=== PATIENT | male | born 1945 | race Caucasian/White ===

== ENCOUNTER 2023-02-04 22:55 | Inpatient (IN) | payer OTHER ==
[~2023-02-04] VITALS: Ht 175.3 cm; Wt 68.0 kg
[2023-02-05] VITALS (16 sets, daily range): BP systolic 113–148; BP diastolic 37–58
--- NOTE | 2023-02-05 00:57 | NUR ---
ADMIT NOTE. 77 YR OLD MALE DIRECT ADMIT FROM [place] WITH C/O ABD PAIN AND FEVER. ALERT AND ORIENTED. ORIENTED TO USE OF CALL LIGHT. CALL LIGHT IN REACH. MD NOTIFIED AND WILL COME TO BEDSIDE TO EVAL AND ADMIT
[2023-02-05 02:13] LABS: Hematocrit 24.2 % (37.0-53.0); Hemoglobin 7.5 g/dL (13.5-17.5); Mean Corpuscular HGB 32.6 pg (26.0-34.0); Mean Corpuscular Volume 105 fL (80-100); Mean Platelet Volume 12.4 fL (9.1-12.4); Platelet Count 202 K/mm3 (150-400); RDW Coefficient Variation 20.8 % (11.7-14.2); RDW Standard Deviation 74.1 fL (35.1-46.3); White Blood Cell Count 8.62 K/mm3 (4.00-11.30)
[2023-02-05] MEDS ORDERED: Ventolin/Prove6.7 GM INH (02:30)
[2023-02-05 02:31] LABS: International Normalized Ratio 1.42; Prothrombin Time Results 14.6 Sec (9.7-11.5)
[2023-02-05] MEDS ORDERED: Ventolin5 MG/1 ML INH (02:31)
[2023-02-05] MEDS ORDERED: ALLO100 PO (02:32)
[2023-02-05] MEDS ORDERED: AMLO5 PO (02:32)
[2023-02-05 02:33] LABS: Albumin, Blood 2.5 g/dL (3.4-5.0); Albumin/Globulin Ratio 0.8 (0.8-1.8); Bilirubin, Total 0.3 mg/dL (0.1-1.0); Bun/Creatinine Ratio 14.4 (12.0-20.0); Calcium, Blood 8.3 mg/dL (8.5-10.1); Creatinine, Blood 3.96 mg/dL (0.60-1.20); Globulin, Blood 3.2 g/dL (2.2-4.0); Potassium, Blood 4.9 mmol/L (3.5-5.5); Total Protein, Blood 5.7 g/dL (6.4-8.2)
[2023-02-05] MEDS ORDERED: Aspir 8181 MG PO (02:33)
[2023-02-05] MEDS ORDERED: CREON DR 12,001 EACH PO ×2 (02:33→02:34)
[2023-02-05] MEDS ORDERED: MIRALAX11914 PO (02:35)
[2023-02-05] MEDS ORDERED: Cyclobenzaprine5 MG PO (02:37)
[2023-02-05] MEDS ORDERED: COLACE100 MG PO (02:37)
[2023-02-05] MEDS ORDERED: ELIQUIS5 M2 PO (02:39)
[2023-02-05] MEDS ORDERED: Flonase 0.05% N16 GM (02:40)
[2023-02-05] MEDS ORDERED: FOLI1 PO (02:41)
[2023-02-05] MEDS ORDERED: GABA300 PO (02:42)
[2023-02-05] MEDS ORDERED: LACT PO (02:42)
[2023-02-05] MEDS ORDERED: LACT10SY PO (02:43)
[2023-02-05 02:45] LABS: BAND PERCENT MAN 42 % (0-8); BASOPHILS PERCENT MAN 0 % (0-2); EOSINOPHILS PERCENT MAN 0 % (0-6); LYMPHOCYTES ABSOLUTE MAN 0.43 K/mm3 (0.84-5.20); LYMPHOCYTES PERCENT MAN 5 % (21-46); METAMYELOCYTE ABSOLUTE MAN 0.08 K/mm3 (0.00-0.00); METAMYELOCYTE PERCENT MAN 1 % (0-0); MONOCYTES ABSOLUTE MAN 1.29 K/mm3 (0.16-1.47); MONOCYTES PERCENT MAN 15 % (4-13); SEG NEUTROPHILS PERCENT MAN 37 % (41-73); TOTAL CELLS COUNTED 100
[2023-02-05] MEDS ORDERED: [UNRECOGNIZED DRUG - OTHER] TOP (02:45)
[2023-02-05] MEDS ORDERED: LIDO700A20 TOP (02:45)
[2023-02-05] MEDS ORDERED: LOSA50 PO (02:45)
[2023-02-05] MEDS ORDERED: MELA3 PO (02:46)
[2023-02-05] MEDS ORDERED: MIDO5 PO ×2 (02:48→02:49)
[2023-02-05] MEDS ORDERED: MULVITA PO (02:49)
[2023-02-05] MEDS ORDERED: NALOXONE HCL4 MG (02:50)
[2023-02-05] MEDS ORDERED: NEPRO CARB STEADY PO (02:51)
[2023-02-05] MEDS ORDERED: ONDA4ODT PO (02:56)
[2023-02-05] MEDS ORDERED: Percocet 5-3251 EACH PO (02:57)
[2023-02-05] MEDS ORDERED: PANT40 PO (02:58)
[2023-02-05] MEDS ORDERED: RENVELA800 MG PO (03:07)
[2023-02-05] MEDS ORDERED: ROSUVASTATIN CA10 MG PO (03:08)
[2023-02-05] MEDS ORDERED: SENNA LAXATIVE8.6 MG PO (03:09)
[2023-02-05] MEDS ORDERED: STIOLTO RESPIMAT4 G1 INH (03:09)
[2023-02-05] MEDS ORDERED: Vitamin D1000 UNI1 PO (03:10)
[2023-02-05] MEDS ORDERED: MIRTAZAPINE7.5 M1 PO (03:11)
[2023-02-05] MEDS ORDERED: APHEN325 M2 PO (03:12)
--- NOTE | 2023-02-05 04:15 | NUR ---
PLASTIC FRAME INSERTER SUMMARY VSS. WAS ADMITTED EARLIER IN THE SHIFT FROM [place], AFTER DURING DIALYSIS HE BECAME ILL AND "STOPPED HALF WAY THROUGH IT". WAS TRANSFERRED HERE WITH DX OF SEPSIS AND COLITIS. REPORTEDLY HAD SEVERE ABD DISCOMFORT, BUT UPON ARRIVAL STATED PAIN HAD GONE. ALERT AND ORIENTED. MD ASSESSED PT AND IVF INITIATED, ANTIBIOTICS TO BEGIN IN THE AM. HAS BEEN RESTING QUIETLY WITH FEW INTERRUPTIONS. CALL LIGHT IN REACH. BED ALARM ON FOR SAFETY. WILL CONTINUE TO MONITOR.
--- NOTE | 2023-02-05 04:43 | NUR ---
WAS GIVEN TEACHING RE NO SMOKING, FIRE IGNITION WITH OXYGEN WHEN HE ARRIVED ON THE FLOOR. STATED NOT CURRENT SMOKER. VOICED UNDERSTANDING OF INFO.
[2023-02-06] VITALS (24 sets, daily range): BP systolic 110–149; BP diastolic 38–59
--- NOTE | 2023-02-06 03:57 | NUR ---
HYDROMETER CALIBRATOR SUMMARY VSS. RECEIVED TEACHING RE FIRE IGNITION/OXYGEN AND NO SMOKING AGAIN THIS SHIFT. MED TELE SINUS RHYTHM IN THE 80'S. ON CL LIQ DIET. TOLERATING WELL. IV ANTIBIOTICS INFUSING PER MD ORDERS. SEE MAR FOR DETAILS ON MEDS. HAS BEEN RESTING QUIETLY WITH FEW INTERRUPTIONS, QUICKLY GOES BACK TO SLEEP WHEN AWAKENED FOR CARE. DIALYSIS FISTULA OF LEFT FOREARM. FEELING IN BLE IMPROVED COMPARED TO THAT OF 24 HR AGO. CALL LIGHT IN REACH. WILL CONTINUE TO MONITOR.
[2023-02-06 09:28] LABS: Hematocrit 20.2 % (37.0-53.0); Hemoglobin 6.6 g/dL (13.5-17.5); Mean Corpuscular HGB 33.3 pg (26.0-34.0); Mean Corpuscular HGB Conc 32.7 g/dL (31.5-36.5); Mean Corpuscular Volume 102 fL (80-100); Mean Platelet Volume 12.5 fL (9.1-12.4); Platelet Count 191 K/mm3 (150-400); RDW Standard Deviation 76.2 fL (35.1-46.3); Red Blood Cell Count 1.98 M/mm3 (4.30-5.90); White Blood Cell Count 9.35 K/mm3 (4.00-11.30)
[2023-02-06 09:44] LABS: Albumin, Blood 2.2 g/dL (3.4-5.0); Albumin/Globulin Ratio 0.6 (0.8-1.8); Bilirubin, Total 0.2 mg/dL (0.1-1.0); Bun/Creatinine Ratio 14.6 (12.0-20.0); Creatinine, Blood 4.12 mg/dL (0.60-1.20); Globulin, Blood 3.5 g/dL (2.2-4.0); Magnesium, Blood 2.1 mg/dL (1.6-2.4); Phosphorus, Blood 3.1 mg/dL (2.5-4.9); Potassium, Blood 4.3 mmol/L (3.5-5.5); Total Protein, Blood 5.7 g/dL (6.4-8.2)
[2023-02-06 12:45] LABS: BAND PERCENT MAN 34 % (0-8); BASOPHILS PERCENT MAN 0 % (0-2); EOSINOPHILS ABSOLUTE MAN 0.09 K/mm3 (0.00-0.68); EOSINOPHILS PERCENT MAN 1 % (0-6); LYMPHOCYTES ABSOLUTE MAN 0.65 K/mm3 (0.84-5.20); LYMPHOCYTES PERCENT MAN 7 % (21-46); MONOCYTES ABSOLUTE MAN 0.09 K/mm3 (0.16-1.47); MONOCYTES PERCENT MAN 1 % (4-13); SEG NEUTROPHILS PERCENT MAN 57 % (41-73); TOTAL CELLS COUNTED 100
--- NOTE | 2023-02-06 18:45 | NUR ---
SHIFT SUMMARY: PT A/O X 4, STANDBY ASSIST TO BSC. PT TOLERATING CLEAR LIQUID DIET. PT ABD PAIN MANAGED WITH FENTANYL AND TYLENOL. PT TOLERATED BLOOD ADMINISTRATION THIS AM DURING DIALYSIS. PT HAD BM TODAY. PT NSR ON TELE. PLEASANT AND COOPERATIVE WITH CARE. PT WAS EDUCATED ON IGNITION SOURCES AND RISK OF SMOKING WHILE USING OXYGEN. PT VU. PT DENIED HAVING IGNITION SOURCES AND IS NOT ON OXYGEN. PT DID NOT SHOW ANY SIGNS OF UTILIZING SMOKING MATERIALS WHILE ROUNDED ON.
[2023-02-07] VITALS (14 sets, daily range): BP systolic 121–164; BP diastolic 48–104
[2023-02-07 06:04] LABS: Hematocrit 24.5 % (37.0-53.0); Hemoglobin 8.1 g/dL (13.5-17.5)
[2023-02-07 06:28] LABS: Albumin, Blood 2.3 g/dL (3.4-5.0); Anion Gap 9 mmol/L (6-16); Blood Urea Nitrogen 37 mg/dL (8-24); Bun/Creatinine Ratio 12.1 (12.0-20.0); CO2, Blood 31 mmol/L (21-32); Calcium, Blood 9.1 mg/dL (8.5-10.1); Chloride, Blood 97 mmol/L (98-108); Creatinine, Blood 3.05 mg/dL (0.60-1.20); Glomerular Filtration Rate 20 (60-); Glucose, Blood 96 mg/dL (70-99); Magnesium, Blood 2.1 mg/dL (1.6-2.4); Phosphorus, Blood 2.4 mg/dL (2.5-4.9); Potassium, Blood 3.4 mmol/L (3.5-5.5); Sodium, Blood 137 mmol/L (136-145)
--- NOTE | 2023-02-07 07:45 | NUR ---
TYLENOL AND FENTANYL FOR PAIN MODERATELY EFFECTIVE. TOLERATES CARES, AO, PLEASANT, VSS, DID NOT GET OOB LAST NIGHT. TOLERATING DIET WITHOUT N/V. UNEVENTFUL NIGHT.
[2023-02-07 12:38] LABS: Hemoglobin 8.1 g/dL (13.5-17.5); Mean Corpuscular HGB 33.8 pg (26.0-34.0); Mean Corpuscular HGB Conc 33.8 g/dL (31.5-36.5); Mean Corpuscular Volume 100 fL (80-100); Mean Platelet Volume 12.1 fL (9.1-12.4); Platelet Count 194 K/mm3 (150-400); RDW Coefficient Variation 20.4 % (11.7-14.2); RDW Standard Deviation 71.4 fL (35.1-46.3); White Blood Cell Count 10.55 K/mm3 (4.00-11.30)
[2023-02-07 13:06] LABS: BAND PERCENT MAN 8 % (0-8); BASOPHILS PERCENT MAN 0 % (0-2); EOSINOPHILS PERCENT MAN 1 % (0-6); LYMPHOCYTES ABSOLUTE MAN 0.31 K/mm3 (0.84-5.20); LYMPHOCYTES PERCENT MAN 3 % (21-46); MONOCYTES ABSOLUTE MAN 0.21 K/mm3 (0.16-1.47); MONOCYTES PERCENT MAN 2 % (4-13); NEUTROPHILS ABSOLUTE MAN 9.91 K/mm3 (1.96-9.15); SEG NEUTROPHILS PERCENT MAN 86 % (41-73); TOTAL CELLS COUNTED 100
--- NOTE | 2023-02-07 18:43 | NUR ---
SHIFT SUMMARY- PT RECIEVED IV CONTRAST WITH HIS CT ABDOMEN AND WAS DIALIZED AFTER THAT. LACTIC WAS CRITICAL AT 3.1 REDRAW WAS DONE 40 MINUTES INTO DIALYSIS SO RESULTS MAY BE INACCURATE, MD AWARE. WAS CALLED BY TELE AN EVENT WAS NOTED AT 0630 AM ON 02-06-23 PT HAD A 28 BEAT RUN OF V-TACH FOLLOWED BY A 3 SECOND PAUSE AND THEN RETURNED TO HIS BASELINE RATE. ATTEMPTED TO CALL MD AFTER BEING INFORMED AND WAS UNABLE TO REACH HER. PT HAS HAD NO EVENTS THIS SHIFT THOUGH. DENIES SOB OR CP. PT CURRENTLY IN BED, CALL LIGHT IN REACH NO S&S OF DISTRESS NOTED. 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
[2023-02-08 02:20] VITALS: BP 142/47
--- NOTE | 2023-02-08 04:40 | NUR ---
COSTING ANALYST SUMMARY NO ACUTE EVENTS THIS SHIFT. A&OX4. PATIENT EFFECTIVELY COMMUNICATES NEEDS. VSS. RR EVEN AND UNLABORED ON RA. PAIN ASSESSED AND MEDICATED PER EMAR. PATIENT IS TOLERATING IV ABO THERAPY. FISTULA TO LEFT FOREARM /C BRUITS AND THRILL. DIALYSIS YESTERDAY, 02/07, AFTER CT /C CONTRAST. CT RESULTS PENDING. BED LOW AND LOCKED. CALL LIGHT WITHIN REACH. THIS RN WILL CONTINUE TO MONITOR.
[2023-02-08 05:03] LABS: BASOPHILS ABSOLUTE AUTO 0.04 K/mm3 (0.00-0.23); BASOPHILS PERCENT AUTO 0 % (0-2); EOSINOPHILS ABSOLUTE AUTO 0.53 K/mm3 (0.00-0.68); EOSINOPHILS PERCENT AUTO 4 % (0-6); Hematocrit 26.6 % (37.0-53.0); Hemoglobin 9.1 g/dL (13.5-17.5); IMMATURE GRAN ABSOLUTE AUTO 0.07 K/mm3 (0.00-0.10); IMMATURE GRAN PERCENT AUTO 1 % (0-1); LYMPHOCYTES ABSOLUTE AUTO 0.56 K/mm3 (0.84-5.20); LYMPHOCYTES PERCENT AUTO 4 % (21-46); MONOCYTES ABSOLUTE AUTO 1.29 K/mm3 (0.16-1.47); MONOCYTES PERCENT AUTO 10 % (4-13); Mean Corpuscular HGB 33.3 pg (26.0-34.0); Mean Corpuscular HGB Conc 34.2 g/dL (31.5-36.5); Mean Corpuscular Volume 97 fL (80-100); NEUTROPHILS ABSOLUTE AUTO 10.78 K/mm3 (1.96-9.15); NEUTROPHILS PERCENT AUTO 81 % (41-73); Platelet Count 224 K/mm3 (150-400); RDW Coefficient Variation 19.3 % (11.7-14.2); RDW Standard Deviation 66.5 fL (35.1-46.3); Red Blood Cell Count 2.73 M/mm3 (4.30-5.90); White Blood Cell Count 13.27 K/mm3 (4.00-11.30)
[2023-02-08 05:35] LABS: Albumin, Blood 2.8 g/dL (3.4-5.0); Anion Gap 12 mmol/L (6-16); Blood Urea Nitrogen 30 mg/dL (8-24); Bun/Creatinine Ratio 10.4 (12.0-20.0); CO2, Blood 27 mmol/L (21-32); Calcium, Blood 9.3 mg/dL (8.5-10.1); Chloride, Blood 93 mmol/L (98-108); Creatinine, Blood 2.88 mg/dL (0.60-1.20); Glomerular Filtration Rate 22 (60-); Glucose, Blood 136 mg/dL (70-99); Magnesium, Blood 1.9 mg/dL (1.6-2.4); Phosphorus, Blood 2.3 mg/dL (2.5-4.9); Potassium, Blood 3.5 mmol/L (3.5-5.5); Sodium, Blood 132 mmol/L (136-145)
[2023-02-08 08:01] VITALS: BP 138/56
[2023-02-08 12:23] VITALS: BP 154/78
[2023-02-08 14:33] VITALS: BP 163/65
[2023-02-08 18:09] VITALS: BP 139/55
--- NOTE | 2023-02-08 18:46 | NUR ---
SHIFT SUMMARY- PT HAD A SMALL HARD STOOL THIS MORNING AND A MEDIUM QUANTITY OF HARD STOOL AFTER A GLYCERIN SUPPOSITORY. MD ORDERED AND ADDITIONAL SUPPOSITORY AND SCHEDULED BOWEL MEDS. PT PAIN HAS BEEN WELL MANAGED WITH THE NORCO TODAY. NO DIALYSIS TODAY. LAST SUPPOSITORY WAS GIVEN AROUND 1819. PASSED ON IN REPORT TO NIGHT RN AT THE BEDSIDE. DR GUILLERMO SPOKE TO DR BEDOLLA AND IF THE PT IS STILL HERE MONDAY SHE MAY OFFICIALLY CONSULT FOR THE POSSIBLE ISCHEMIA NOTED ON CT. PT IN BED, CALL [facility] IN REACH NO S&S OF DISTRESS.
[2023-02-08 20:38] VITALS: BP 151/54
[2023-02-09] VITALS (16 sets, daily range): BP systolic 112–159; BP diastolic 42–61
--- NOTE | 2023-02-09 04:04 | NUR ---
C PROGRAMMER SUMMARY NO ACUTE EVENTS THIS SHIFT. A&OX4. PATIENT EFFECTIVELY COMMUNICATES NEEDS. VSS. RR EVEN AND UNLABORED ON RA. PAIN ASSESSED AND MEDICATED PER EMAR. PATIENT IS TOLERATING IV ABO THERAPY. SEVERAL SMALL BOWEL MOVEMENTS ON DAY SHIFT REPORTED, BUT NO BOWEL MOVEMENTS OCURRED THIS SHIFT. PATIENT IS PASSING FLATULENCE. FISTULA TO LEFT FOREARM. BED LOW AND LOCKED. CALL LIGHT WITHIN REACH. THIS RN WILL CONTINUE TO MONITOR.
[2023-02-09 04:44] LABS: Hematocrit 20.1 % (37.0-53.0); Hemoglobin 6.9 g/dL (13.5-17.5)
[2023-02-09 05:53] LABS: Magnesium, Blood 1.7 mg/dL (1.6-2.4)
[2023-02-09 05:56] LABS: Albumin, Blood 2.4 g/dL (3.4-5.0); Anion Gap 12 mmol/L (6-16); Blood Urea Nitrogen 43 mg/dL (8-24); Bun/Creatinine Ratio 10.1 (12.0-20.0); CO2, Blood 25 mmol/L (21-32); Chloride, Blood 92 mmol/L (98-108); Creatinine, Blood 4.25 mg/dL (0.60-1.20); Glomerular Filtration Rate 14 (60-); Glucose, Blood 110 mg/dL (70-99); Phosphorus, Blood 5.2 mg/dL (2.5-4.9); Potassium, Blood 3.4 mmol/L (3.5-5.5); Sodium, Blood 129 mmol/L (136-145)
--- NOTE | 2023-02-09 18:09 | NUR ---
SHIFT SUMMARY PT IS ALERT AND ORIENTED X4. SBA TO THE BEDSIDE COMMODE DIALYSIS TODAY. 1 UNIT OF BLOOD ADMINISTERED DURING DIALYSIS. PT REPORTS FEELING LESS DISTENDED TODAY BUT STILL HAS PAIN IN UPPER ABDOMEN. TREATED PER EMAR. 2 SMALL HARD STOOLS TODAY. NO ACUTE CHANGES THIS SHIFT. PT DENIES SMOKING CIGARETTE BUT OCASSIONALY SMOKE MARIJUANA. EDUCATION PROVIDED ON RISKS OF INJURY WHILE USING AN IGNITION SOURCE AROUND OXYGEN. PT VERBALIZES UNDERSTANDING. PT DENIES HAVING ANY IGNITION SOURCES ON HER OR IN HER ITEMS. NO VISITORS THIS SHIFT.
--- NOTE | 2023-02-09 18:29 | NUR ---
SPOKE WITH PHARMACIST. OK TO PUSH OUT ANTIBIOTIC SCHEDULE TODAY AND CONTINUE WITH REGULAR SCHEDULE TOMORROW. ANTIBIOTICS PUSHED OUT DUE TO DIALYSIS.
[2023-02-10 03:24] VITALS: BP 146/55
[2023-02-10 05:47] LABS: BASOPHILS ABSOLUTE AUTO 0.05 K/mm3 (0.00-0.23); BASOPHILS PERCENT AUTO 1 % (0-2); EOSINOPHILS ABSOLUTE AUTO 0.32 K/mm3 (0.00-0.68); EOSINOPHILS PERCENT AUTO 4 % (0-6); Hematocrit 25.9 % (37.0-53.0); IMMATURE GRAN ABSOLUTE AUTO 0.11 K/mm3 (0.00-0.10); IMMATURE GRAN PERCENT AUTO 1 % (0-1); LYMPHOCYTES ABSOLUTE AUTO 0.56 K/mm3 (0.84-5.20); LYMPHOCYTES PERCENT AUTO 6 % (21-46); MONOCYTES ABSOLUTE AUTO 1.51 K/mm3 (0.16-1.47); MONOCYTES PERCENT AUTO 17 % (4-13); Mean Corpuscular HGB 32.3 pg (26.0-34.0); Mean Corpuscular HGB Conc 34.7 g/dL (31.5-36.5); Mean Corpuscular Volume 93 fL (80-100); Mean Platelet Volume 12.2 fL (9.1-12.4); NEUTROPHILS ABSOLUTE AUTO 6.62 K/mm3 (1.96-9.15); NEUTROPHILS PERCENT AUTO 72 % (41-73); Platelet Count 181 K/mm3 (150-400); RDW Coefficient Variation 18.4 % (11.7-14.2); RDW Standard Deviation 58.4 fL (35.1-46.3); Red Blood Cell Count 2.79 M/mm3 (4.30-5.90); White Blood Cell Count 9.17 K/mm3 (4.00-11.30)
--- NOTE | 2023-02-10 06:16 | NUR ---
SHIFT SUMMARY PT C/O PAIN THROUGHOUT SHIFT. PT WOULD FALL ASLEEP AFTER INITIAL MEDICATIN AND WAKE BACK UP SHORTLY AFTER REQUESTING ADDITIONAL PAIN MEDICATION. PER PT REPORT, FENTANYL MANAGED PT'S PAIN THE BEST. 2 EPISODES OF EMESIS THIS SHIFT. FIRST EPISODE WAS 100CC OF BROWN BILE IN WHICH HE REFUSED PRN ZOFRAN. THE SECOND EPISODE WAS 400CC IN WHICH HE WAS AGREEABLE TO ZOFRAN. NO OTHER EMESIS NOTED AFTER ZOFRAN ADMIN. DR. JACKMAN WAS NOTIFIED OF A 5 BEAT RUN OF ASYMPTOMATIC V-TACH OCCURRING AROUND 0130. NO NEW ORDERS AT THIS TIME. PT TO HAVE AM LABS. Q1H FIRE SAFETY CHECKS COMPLETED WITH NO SOURCES OF IGNITION FOUND.
[2023-02-10 06:39] LABS: Albumin, Blood 2.4 g/dL (3.4-5.0); Albumin/Globulin Ratio 0.6 (0.8-1.8); Bilirubin, Total 0.3 mg/dL (0.1-1.0); Bun/Creatinine Ratio 8.3 (12.0-20.0); Calcium, Blood 8.2 mg/dL (8.5-10.1); Creatinine, Blood 3.62 mg/dL (0.60-1.20); Globulin, Blood 3.7 g/dL (2.2-4.0); Magnesium, Blood 1.7 mg/dL (1.6-2.4); Phosphorus, Blood 5.3 mg/dL (2.5-4.9); Potassium, Blood 3.6 mmol/L (3.5-5.5); Total Protein, Blood 6.1 g/dL (6.4-8.2)
[2023-02-10 07:15] VITALS: BP 143/59
[2023-02-10 14:56] VITALS: BP 134/55
[2023-02-10 18:04] VITALS: BP 143/55
--- NOTE | 2023-02-10 18:58 | NUR ---
SHIFT SUMMARY PT IS ALERT AND ORIENTED X4. PT HAD MED-LARGE SOFT STOOL FOLLOWING ENEMA. PT HAS NOT EATEN MUCH TODAY. SBA WITH FWW TO BEDSIDE COMMODE. NO DIALYSIS TODAY. NO ACUTE CHANGES THIS SHIFT
[2023-02-10 20:08] VITALS: BP 151/53
[2023-02-11] VITALS (16 sets, daily range): BP systolic 113–165; BP diastolic 50–95
[2023-02-11 04:49] LABS: BASOPHILS ABSOLUTE AUTO 0.06 K/mm3 (0.00-0.23); BASOPHILS PERCENT AUTO 1 % (0-2); EOSINOPHILS ABSOLUTE AUTO 0.39 K/mm3 (0.00-0.68); EOSINOPHILS PERCENT AUTO 3 % (0-6); Hematocrit 23.5 % (37.0-53.0); IMMATURE GRAN ABSOLUTE AUTO 0.14 K/mm3 (0.00-0.10); IMMATURE GRAN PERCENT AUTO 1 % (0-1); LYMPHOCYTES ABSOLUTE AUTO 0.55 K/mm3 (0.84-5.20); LYMPHOCYTES PERCENT AUTO 5 % (21-46); MONOCYTES ABSOLUTE AUTO 1.46 K/mm3 (0.16-1.47); MONOCYTES PERCENT AUTO 12 % (4-13); Mean Corpuscular HGB 32.4 pg (26.0-34.0); Mean Corpuscular Volume 95 fL (80-100); Mean Platelet Volume 11.4 fL (9.1-12.4); NEUTROPHILS ABSOLUTE AUTO 9.59 K/mm3 (1.96-9.15); NEUTROPHILS PERCENT AUTO 79 % (41-73); Platelet Count 211 K/mm3 (150-400); RDW Coefficient Variation 18.1 % (11.7-14.2); RDW Standard Deviation 59.7 fL (35.1-46.3); Red Blood Cell Count 2.47 M/mm3 (4.30-5.90); White Blood Cell Count 12.19 K/mm3 (4.00-11.30)
--- NOTE | 2023-02-11 05:16 | NUR ---
SHIFT SUMMARY PT HAS RESTED MOST THE NIGHT. PT CONTINUES TO REPORT BACK PAIN, AND AT ONE POINT DURING THE SHIFT MUSCLES SPASMS. BOTH WERE RELIEVED WITH MEDS PER EMAR. PT CONTINUES BOWEL CARE FOR CONSTIPATION. NO BOWEL MOVEMENT THIS SHIFT. IV ANTIBIOTICS CONTINUED. PT A/OX4, MAKES NEEDS KNOWN. VITALS STABLE. BED IN LOWEST POSITION, CALL LIGHT WITH REACH.
[2023-02-11 05:18] LABS: Albumin, Blood 2.2 g/dL (3.4-5.0); Anion Gap 12 mmol/L (6-16); Blood Urea Nitrogen 41 mg/dL (8-24); Bun/Creatinine Ratio 8.5 (12.0-20.0); CO2, Blood 26 mmol/L (21-32); Calcium, Blood 7.6 mg/dL (8.5-10.1); Chloride, Blood 95 mmol/L (98-108); Creatinine, Blood 4.84 mg/dL (0.60-1.20); Glomerular Filtration Rate 12 (60-); Glucose, Blood 87 mg/dL (70-99); Phosphorus, Blood 7.2 mg/dL (2.5-4.9); Potassium, Blood 3.9 mmol/L (3.5-5.5); Sodium, Blood 133 mmol/L (136-145)
[2023-02-11 15:52] LABS: Stool Occult Blood Guaiac 1 Pos (Neg)
--- NOTE | 2023-02-11 15:59 | NUR ---
PHYSICIAN CONTACT CALL TO DR GUILLERMO AT 0400 TO REPORT STOOL POSITIVE FOR BLOOD AND REPORT NEW IV WAS PLACED. NEW ORDER FOR NPO. WILL CONSULT WITH GI AND CALL BACK.
[2023-02-11 17:36] LABS: Hemoglobin 8.4 g/dL (13.5-17.5)
--- NOTE | 2023-02-11 18:02 | NUR ---
PHYSICIAN CONTACT DR KRUGER AT BEDSIDE WITH PATIENT. STATES PT MAY NOT TOLERATE BOWEL PREP. NEW ORDER FOR CLEAR LIQUID DIET. WILL ASSESS PT TOMORROW BEFORE ADVANCING DIET.
--- NOTE | 2023-02-11 18:05 | NUR ---
DAY SHIFT SUMMARY PT A/OX4. BEDSIDE DIALYSIS THIS MORNING. 2L REMOVED. BLOOD PRESSURES STABLE T/O AND AFTER DIALYSIS. PT HAD TWO LARGE BLACK TARRY/PUDDING STOOLS. SENT SAMPLE. POSITVE FOR BLOOD. SEE OTHER NOTES. PT WILL REMAIN ON CLEAR LIQUID DIET UNTIL REASSESSED BY GI/DR KRUGER. PT CONTINUES TO COMPLAIN OF ABD PAIN AND BACK PAIN. MED PER EMAR. NEW IV PLACED IN RIGHT UPPER ARM. FISTULA IN LEFT ARE PATENT AND DRESSED AFTER DIALYSIS. PT ABLE TO MAKE NEEDS KNOWN. 1 PA TO BSC. CHARGE NURSE ASSESSED IGNITION RISKS. PT EDUCATED ON IGNITION RISKS.
[2023-02-12 01:32] VITALS: BP 125/82
--- NOTE | 2023-02-12 05:00 | NUR ---
SHIFT SUMMARY NO ACUTE CHANGES NOTED DURING SHIFT. PT ALERT AND ORIENETED,CALLS APPROPRIATELY. PT REMAINS ON RA, SX 1 ASSIST. PT WITH CONTINUED C/O PAIN TO ABD, MEDICATED MULTIPLE TIMES PER EMAR, REPOSITIONED, HEAT APPLIED. WILL CONTINUE TO MONITOR. CALL LIGHT WITHIN REACH.
[2023-02-12 05:02] LABS: BASOPHILS ABSOLUTE AUTO 0.05 K/mm3 (0.00-0.23); BASOPHILS PERCENT AUTO 0 % (0-2); EOSINOPHILS ABSOLUTE AUTO 0.37 K/mm3 (0.00-0.68); EOSINOPHILS PERCENT AUTO 3 % (0-6); Hematocrit 24.8 % (37.0-53.0); Hemoglobin 8.3 g/dL (13.5-17.5); IMMATURE GRAN ABSOLUTE AUTO 0.15 K/mm3 (0.00-0.10); IMMATURE GRAN PERCENT AUTO 1 % (0-1); LYMPHOCYTES PERCENT AUTO 5 % (21-46); MONOCYTES ABSOLUTE AUTO 1.13 K/mm3 (0.16-1.47); MONOCYTES PERCENT AUTO 9 % (4-13); Mean Corpuscular HGB 32.4 pg (26.0-34.0); Mean Corpuscular HGB Conc 33.5 g/dL (31.5-36.5); Mean Corpuscular Volume 97 fL (80-100); Mean Platelet Volume 11.4 fL (9.1-12.4); NEUTROPHILS ABSOLUTE AUTO 10.85 K/mm3 (1.96-9.15); NEUTROPHILS PERCENT AUTO 82 % (41-73); Platelet Count 232 K/mm3 (150-400); RDW Coefficient Variation 17.9 % (11.7-14.2); RDW Standard Deviation 61.7 fL (35.1-46.3); Red Blood Cell Count 2.56 M/mm3 (4.30-5.90); White Blood Cell Count 13.25 K/mm3 (4.00-11.30)
[2023-02-12 05:21] LABS: Albumin, Blood 2.3 g/dL (3.4-5.0); Anion Gap 11 mmol/L (6-16); Blood Urea Nitrogen 27 mg/dL (8-24); Bun/Creatinine Ratio 6.8 (12.0-20.0); CO2, Blood 27 mmol/L (21-32); Calcium, Blood 8.1 mg/dL (8.5-10.1); Chloride, Blood 96 mmol/L (98-108); Creatinine, Blood 3.96 mg/dL (0.60-1.20); Glomerular Filtration Rate 15 (60-); Glucose, Blood 87 mg/dL (70-99); Magnesium, Blood 1.8 mg/dL (1.6-2.4); Phosphorus, Blood 5.3 mg/dL (2.5-4.9); Sodium, Blood 134 mmol/L (136-145)
[2023-02-12 07:38] VITALS: BP 138/123
[2023-02-12 07:39] VITALS: BP 136/46
[2023-02-12 16:16] VITALS: BP 143/53
--- NOTE | 2023-02-12 18:47 | NUR ---
SHIFT SUMMARY ALERT AND ORIENTED. TREATED PAIN PER EMAR. NO ACUTE CHANGES THIS SHIFT. PT DENIES SMOKING ANY PRODUCT. DURING HOURLY ROUNDING, EDUCATION IS PROVIDED ON THE RISKS OF INJURY WHILE USING AN IGNITION SOURCE AROUND OXYGEN. PT VERBALIZES UNDERSTANDING. PT. DENIES HAVING ANY IGNITION SOURCES ON HIM
[2023-02-12 20:18] VITALS: BP 175/67
[2023-02-13] VITALS (17 sets, daily range): BP systolic 111–171; BP diastolic 21–67
--- NOTE | 2023-02-13 04:24 | NUR ---
CARE NURSE RN SUMMARY NO ACUTE EVENTS OVERNIGHT. A&OX4. PATIENT EFFECTIVELY COMMUNICATES NEEDS. VSS. RR EVEN AND UNLABORED ON RA. TELE REVEALS SINUS RHYTHM, HR 80'S. PAIN ASSESSED AND MEDICATED PER EMAR. PATIENT IS PASSING FLATULENCE, BUT NO BOWEL MOVEMENTS THIS SHIFT. PER DAY SHIFT REPORT, PATIENT PASSED SEVERAL MEDIUM-SIZED BOWEL MOVEMENTS DURING THE DAY. FISTULA TO LEFT FOREARM WITH BRUITS AND THRILL. PATIENT IS TOLERATING IVO THERAPY. BED LOW AND LOCKED. CALL LIGHT WITHIN REACH. THIS RN WILL CONTINUE TO MONITOR.
[2023-02-13 04:51] LABS: Hematocrit 22.8 % (37.0-53.0); Hemoglobin 7.8 g/dL (13.5-17.5)
[2023-02-13 05:19] LABS: Albumin, Blood 2.4 g/dL (3.4-5.0); Anion Gap 13 mmol/L (6-16); Blood Urea Nitrogen 38 mg/dL (8-24); Bun/Creatinine Ratio 7.1 (12.0-20.0); CO2, Blood 27 mmol/L (21-32); Calcium, Blood 8.3 mg/dL (8.5-10.1); Chloride, Blood 92 mmol/L (98-108); Creatinine, Blood 5.38 mg/dL (0.60-1.20); Glomerular Filtration Rate 10 (60-); Glucose, Blood 106 mg/dL (70-99); Magnesium, Blood 1.9 mg/dL (1.6-2.4); Phosphorus, Blood 6.2 mg/dL (2.5-4.9); Sodium, Blood 132 mmol/L (136-145)
--- NOTE | 2023-02-13 17:00 | NUR ---
PATIENT EDUCATED ABOUT OXYGEN USE IN HOSPITAL, FLAMMABILITY OF OXYGEN, AND SAFETY REGARDING OXYGEN USE. VERBALIZED UNDERSTANDING OF THIS EDUCATION. DENIED HAVING ANY INCENDIARY DEVICES SUCH BOOTS AND SHOES SUPERVISOR OR MATCHES.
--- NOTE | 2023-02-13 17:15 | NUR ---
SHIFT SUMMARY: NO ACUTE EVENTS. HAD DIALYSIS TODAY, TOLERATED WELL. C/O PAIN IN LOW BACK; MEDICATED PER EMAR WITH SOME RELIEF. HAD BM TODAY, LOOSE PER PT REPORT. NO EVENTS ON TELEMETRY, SR 80-90'S. LFA AV FISTULA WITH POSITIVE THRILL AND BRUIT. DIET ADVANCED TO FULL LIQUID PER DR. KRUGER. STATED ABD FEELS BETTER TODAY. ON ROOM AIR. APPETITE OK.
[2023-02-14] VITALS (10 sets, daily range): BP systolic 99–156; BP diastolic 30–104
--- NOTE | 2023-02-14 03:43 | NUR ---
CLINICAL NURSE SPECIALIST SUMMARY NO ACUTE EVENTS OVERNIGHT. A&OX4. PATIENT EFFECTIVELY COMMUNICATES NEEDS. LABILE AFFECT NOTED. VSS. RR EVEN AND UNLABORED ON RA. TELE REVEALS SINUS RHYTHM, 90'S. PATIENT DID HAVE A 6-BEAT RUN OF V-TACH. NO REPORTS OF CHEST PAIN OR PALPITATIONS. PATIENT ALSO HAD AN EPISODE OF EMESIS WITH CONTINUED NAUSEA, FOR WHICH ZOFRAN WAS MINIMALLY EFFECTIVE. AN ORDER FOR IV REGLAN WAS OBTAINED AND REPORTED EFFECTIVE. PATIENT PASSED A MEDIUM-SIZED BOWEL MOVEMENT. BED LOW AND LOCKED. CALL LIGHT WITHIN REACH. THIS RN WILL CONTINUE TO MONITOR.
[2023-02-14 04:38] LABS: BASOPHILS ABSOLUTE AUTO 0.06 K/mm3 (0.00-0.23); BASOPHILS PERCENT AUTO 0 % (0-2); EOSINOPHILS ABSOLUTE AUTO 0.05 K/mm3 (0.00-0.68); EOSINOPHILS PERCENT AUTO 0 % (0-6); Hematocrit 23.9 % (37.0-53.0); IMMATURE GRAN ABSOLUTE AUTO 0.19 K/mm3 (0.00-0.10); IMMATURE GRAN PERCENT AUTO 1 % (0-1); LYMPHOCYTES ABSOLUTE AUTO 0.55 K/mm3 (0.84-5.20); LYMPHOCYTES PERCENT AUTO 3 % (21-46); MONOCYTES PERCENT AUTO 5 % (4-13); Mean Corpuscular HGB 32.4 pg (26.0-34.0); Mean Corpuscular HGB Conc 33.5 g/dL (31.5-36.5); Mean Corpuscular Volume 97 fL (80-100); Mean Platelet Volume 11.4 fL (9.1-12.4); NEUTROPHILS ABSOLUTE AUTO 20.18 K/mm3 (1.96-9.15); NEUTROPHILS PERCENT AUTO 91 % (41-73); Platelet Count 280 K/mm3 (150-400); RDW Coefficient Variation 17.7 % (11.7-14.2); RDW Standard Deviation 61.5 fL (35.1-46.3); Red Blood Cell Count 2.47 M/mm3 (4.30-5.90); White Blood Cell Count 22.13 K/mm3 (4.00-11.30)
--- NOTE | 2023-02-14 05:02 | NUR ---
PATIENT EDUCATION PATIENT EDUCATED ON IGNITION SOURCES AND RISK OF INJURY WHILE OXYGEN IS IN USE. PATIENT DENIES HAVING POSSIBLE IGNITION SOURCES AND/OR TOBACCO PRODUCTS. PATIENT IS AGREEABLE WITH EDUCATION.
[2023-02-14 05:15] LABS: Bun/Creatinine Ratio 6.5 (12.0-20.0); Calcium, Blood 8.1 mg/dL (8.5-10.1); Creatinine, Blood 4.14 mg/dL (0.60-1.20); Potassium, Blood 4.5 mmol/L (3.5-5.5)
[2023-02-14 11:25] LABS: Adenovirus F 40/41 Not Detected (NOT DETECT); Astrovirus Not Detected (NOT DETECT); Campylobacter Sp Not Detected (NOT DETECT); Cryptosporidium Not Detected (NOT DETECT); Cyclospora Cayetanensis Not Detected (NOT DETECT); E. Coli O157 Not Detected (NOT DETECT); Entamoeba Histolytica Not Detected (NOT DETECT); Enteroaggregative E. coli-EAEC Not Detected (NOT DETECT); Enteropathogenic E. coli-EPEC Not Detected (NOT DETECT); Enterotoxigenic E. coli-ETEC Not Detected (NOT DETECT); Giardia Lamblia Not Detected (NOT DETECT); Norovirus GI/GII Detected (NOT DETECT); Plesiomonas Shigelloides Not Detected (NOT DETECT); Rotavirus A Not Detected (NOT DETECT); Salmonella Sp Not Detected (NOT DETECT); Sapovirus Not Detected (NOT DETECT); Shiga Toxin-prod E. coli-STEC Not Detected (NOT DETECT); Shigella/Enteroin E. coli-EIEC Not Detected (NOT DETECT); Vibrio Cholerae Not Detected (NOT DETECT); Vibrio Sp Not Detected (NOT DETECT); Yersinia Enterocolitica Not Detected (NOT DETECT)
--- NOTE | 2023-02-14 15:37 | NUR ---
OXYGEN SAFETY EDUCATION: PATIENT EDUCATED ABOUT OXYGEN USE IN THE HOSPITAL, FLAMMABILITY OF OXYGEN, RISK FOR INJURY R/T OXYGEN USE, AND SAFETY PRECAUTIONS TO BE OBSERVED WHILE USING OXYGEN. PATIENT VERBALIZED UNDERSTANDING OF THESE INSTRUCTIONS, IS NOT CURRENTLY USING OXYGEN AND IS A NON-SMOKER, HAS NO INCENDEIARY DEVICES (LIGHTERS, MATCHES, ETC.) IN HIS POSSESSION.
[2023-02-15] VITALS (24 sets, daily range): BP systolic 105–165; BP diastolic 53–98
[2023-02-15 04:24] LABS: Hematocrit 24.1 % (37.0-53.0); Hemoglobin 7.9 g/dL (13.5-17.5)
[2023-02-15 04:52] LABS: Albumin, Blood 2.3 g/dL (3.4-5.0); Anion Gap 8 mmol/L (6-16); Blood Urea Nitrogen 35 mg/dL (8-24); Bun/Creatinine Ratio 6.3 (12.0-20.0); CO2, Blood 29 mmol/L (21-32); Calcium, Blood 7.8 mg/dL (8.5-10.1); Chloride, Blood 96 mmol/L (98-108); Creatinine, Blood 5.59 mg/dL (0.60-1.20); Glomerular Filtration Rate 10 (60-); Glucose, Blood 109 mg/dL (70-99); Magnesium, Blood 1.7 mg/dL (1.6-2.4); Potassium, Blood 4.5 mmol/L (3.5-5.5); Sodium, Blood 133 mmol/L (136-145)
--- NOTE | 2023-02-15 06:46 | NUR ---
Pt arrived from IR via bed around 1999. Pt hooked up to sequence vitals, and groin site checked at bedside with IR RN. R groin soft and no hematoma or oozing noted. Nontender to palpation. Site checked q15 min x4, q30 min x4, and q1h x2 and q4h throughout the night with no changes in site. Pt laid flat until 2200 and then at 20-30 degrees. Pt remained bedrest overnight. Pain in abdomen and back. Pt states chronic back pain but abdomen pain is "better" than when he came in. Medicated per eMAR. VSS per pt trend. On RA. SR on telemetry. Pt educated on ignition risk and denies sources of ignition.
--- NOTE | 2023-02-15 08:54 | NUR ---
AM NOTES: PT C/O ABD PAIN UPON SHIFT CHANGE THIS MORNING REQUESTED FENTANYL IV, WAS GIVEN AND EFFECTIVE. CURRENTLY IN DIALYSIS ROOM FOR TODAYS SESSION. FISTULA ON LEFT ARM WITH + BRUIT AND THRILL WITH DRESSING INTACT. RIGHT GROIN SITE CDI WELL NO HEMATOMA/BLEEDING NOTED. VITALS HRR SR 90-110'S, SBP 160'S, SATS ABOVE 92% ON RA, AFEBRILE. PT WITH POOR APPETITE TOOK ONLY A COUPLE BITES OF BREAKFAST THIS MORNING REFUSED ANY HEALTHSHAKES, TOOK MEDICINE WITH APPLE JUICE. NO OTHER ISSUES REPORTED, WILL CONTINUE TO MONITOR
--- NOTE | 2023-02-15 19:21 | NUR ---
PT SUMMARY: SEE AM NOTE. PT HAD DIALYSIS THIS MORNING HAD 12 BEATS RUN OF VTACH ASYMPTOMATIC DR FERNANDES MADE AWARE. HRR REMAINED SR AT 80-90'S, SBP 140'S, SATS ABOVE 93% ON RA, AFEBRILE. PT MEDICATED WITH NORCO AND TYLENOL FOR ABD AND BACK PAIN, PT CAN GET ANXIOUS AND IRRITATED AT TIMES. DIET ADVANCED TO RENAL DIET PT STILL HAS POOR APPETITE TOLERATING SMALL BITES AND MILK, REFUSES HIS CREON CAPSULES. PT HAS BEEN AMBULATING TO THE BATHROOM STAN WALKER WITH NO ISSUES, HAD 1 BM TODAY AND WAS SOFT AND BROWN IN COLOR NO DIARRHEA. PT TO GO HOME TOMORROW WAS NOTIFIED WILL CALL IN AM TO VERIFY DISCHARGE PLAN. PT NOW RESTING IN BED CALL LIGHTS IN REACH WILL REPORT TO ONCOMING SHIFT
[2023-02-16 04:01] LABS: Hematocrit 23.6 % (37.0-53.0); Hemoglobin 7.7 g/dL (13.5-17.5)
[2023-02-16 04:26] LABS: Albumin, Blood 2.3 g/dL (3.4-5.0); Anion Gap 11 mmol/L (6-16); Blood Urea Nitrogen 29 mg/dL (8-24); CO2, Blood 27 mmol/L (21-32); Calcium, Blood 8.2 mg/dL (8.5-10.1); Chloride, Blood 98 mmol/L (98-108); Creatinine, Blood 4.15 mg/dL (0.60-1.20); Glomerular Filtration Rate 14 (60-); Glucose, Blood 110 mg/dL (70-99); Magnesium, Blood 1.6 mg/dL (1.6-2.4); Phosphorus, Blood 4.3 mg/dL (2.5-4.9); Potassium, Blood 4.3 mmol/L (3.5-5.5); Sodium, Blood 136 mmol/L (136-145)
[2023-02-16 05:28] VITALS: BP 146/67
--- NOTE | 2023-02-16 06:02 | NUR ---
END OF SHIFT SUMMARY NO ACUTE EVENTS OVERNIGHT; HE ONLY SLEPT FOR A FEW HOURS DESPITE PRN MEDS. HE IS A/O X4 AND USES CALL LIGHT FREQUENTLY; PRN NORCO GIVEN Q6HR FOR BACK PAIN. SPO2 >94% ON RA. SINUS TACH WITH RATE 100-120; BP STABLE. NAUSEA X1; PRN REGLAN GIVEN AND HELPFUL. DIALYSIS FISTULA NOTED TO NIGHAT; BRUIT AND THRILL NOTED. RT GROIN ACCESS FROM 02/14/23 SHOWS NO SIGNS OF HEMATOMA OR BLEEDING. WILL REPORT TO AM RN WHEN AVAILABLE.
[2023-02-16 08:11] VITALS: BP 147/66
[2023-02-16 11:09] VITALS: BP 135/95
--- NOTE | 2023-02-16 14:36 | NUR ---
DISCHARGE HOME PT A&O X4. VSS. SPO2 > 92% ON RA. MONITOR SHOWING NSR. PT DENYING ABD PAIN / DISCOMFORT. PT REPORTING CHRONIC BACK PAIN, MEDICATED PER EMAR W/ REPORT OF IMPROVEMENT. W/ ORDER FOR PT DISCHARGE HOME. DISCHARGE INSTRUCTIONS REVIEWED W/ PT & SENT HOME W/ PT. PIV REMOVED. PT TAKEN OUT BY WHEELCHAIR W/ BELONGINGS & PT SPOUSE PRESENT @ APPROX 1300.
== END 2023-02-16 13:34 | disposition home or self-care (01) | DRG 393 ==
LOC: MEDS 22:55 → PCU 02-05 00:45 → MEDS 02-05 00:45 → PCU 02-14 17:31
PROVIDERS: Internal Medicine; Internal Medicine Gastroenterology; Internal Medicine Nephrology; ADMIT Internal Medicine
PROC: 5A1D70Z Performance of Urinary Filtration, Intermittent, Less than 6 Hours Per Day (ICD-10-PCS; 2023-02-12)
PROC: B4141ZZ Fluoroscopy of Superior Mesenteric Artery using Low Osmolar Contrast (ICD-10-PCS; principal; 2023-02-14)
PROC: B4101ZZ Fluoroscopy of Abdominal Aorta using Low Osmolar Contrast (ICD-10-PCS; 2023-02-14)
PROC: B44LZZZ Ultrasonography of Femoral Artery (ICD-10-PCS; 2023-02-14)
PROC: 30233N1 Transfusion of Nonautologous Red Blood Cells into Peripheral Vein, Percutaneous Approach (ICD-10-PCS; 2023-02-16)
DX: K55.039 Acute (reversible) ischemia of large intestine, extent unspecified (principal); N18.6 End stage renal disease; A08.11 Acute gastroenteropathy due to Norwalk agent; K86.1 Other chronic pancreatitis; D62 Acute posthemorrhagic anemia; E87.1 Hypo-osmolality and hyponatremia; I12.0 Hypertensive chronic kidney disease with stage 5 chronic kidney disease or end stage renal disease; K63.3 Ulcer of intestine; K92.1 Melena; D63.1 Anemia in chronic kidney disease; E86.9 Volume depletion, unspecified; E11.51 Type 2 diabetes mellitus with diabetic peripheral angiopathy without gangrene; E11.22 Type 2 diabetes mellitus with diabetic chronic kidney disease; E78.5 Hyperlipidemia, unspecified; K57.30 Diverticulosis of large intestine without perforation or abscess without bleeding; J44.9 Chronic obstructive pulmonary disease, unspecified; K59.09 Other constipation; M19.90 Unspecified osteoarthritis, unspecified site; K22.70 Barrett's esophagus without dysplasia; I25.10 Atherosclerotic heart disease of native coronary artery without angina pectoris; M62.569 Muscle wasting and atrophy, not elsewhere classified, unspecified lower leg; E11.42 Type 2 diabetes mellitus with diabetic polyneuropathy; E86.0 Dehydration; D72.825 Bandemia; E87.6 Hypokalemia; E83.39 Other disorders of phosphorus metabolism; E88.09 Other disorders of plasma-protein metabolism, not elsewhere classified; Z88.8 Allergy status to other drugs, medicaments and biological substances; Z99.2 Dependence on renal dialysis; Z98.890 Other specified postprocedural states; Z87.19 Personal history of other diseases of the digestive system; Z85.50 Personal history of malignant neoplasm of unspecified urinary tract organ; Z79.01 Long term (current) use of anticoagulants; Z79.82 Long term (current) use of aspirin; Z79.899 Other long term (current) drug therapy; Z95.820 Peripheral vascular angioplasty status with implants and grafts; Z79.51 Long term (current) use of inhaled steroids; Z79.891 Long term (current) use of opiate analgesic
CPT/HCPCS: 36415; 36430; 37246; 37247; 71045; 74018; 74174; 74176; 75726; 75774; 76937; 80048; 80053; 80069; 82272; 82330; 82947; 83605; 83690; 83735; 83880; 84100; 84145; 85014; 85018; 85025; 85610; 86850; 86900; 86901; 86920; 86923; 87040; 87507; 94640; 94664; 94760; 94762; 97110; 97162; 99152; 99153; A9270; C1725; C1760; C1769; C1887; C1894; J0696; J1644; J2250; J2405; J2765; J3010; J3480; J7030; J7040; J7050; J7060; P9016; Q9967